=== PATIENT | female | born 2000 | race Two or more races ===

== ENCOUNTER 2021-03-29 21:42 | Emergency (ER) | payer OTHER ==
[~2021-03-29] VITALS: Ht 167.6 cm; Wt 74.8 kg
[2021-03-29] MEDS ORDERED: diphenhydrAMINE HCL 50 MG/ML VIAL ONE (21:55)
[2021-03-29] MEDS ORDERED: HALOPERIDOL LACTATE INJ 5 MG/ML VIAL ONE (21:55)
[2021-03-29] MEDS ORDERED: QUETIAPINE FUMARATE 25 MG TABLET ONE (21:56)
[2021-03-29] MEDS ORDERED: LORAZEPAM INJ 2 MG/ML VIAL ONE (21:56)
[2021-03-29] MEDS ORDERED: HALOPERIDOL LACTATE INJ 5 MG/ML VIAL IM ONE (22:00)
[2021-03-29] MEDS ORDERED: LORAZEPAM INJ 2 MG/ML VIAL IM ONE (22:00)
[2021-03-29] MEDS ORDERED: diphenhydrAMINE HCL 50 MG/ML VIAL IM ONE (22:00)
[2021-03-29 23:25] LABS: BASOPHILS # (AUTO) 0.1 K/uL (0.0-0.2); EOSINOPHILS % (AUTO) 1.1 % (0.0-6.0); HEMATOCRIT 32 % (33-45); HEMOGLOBIN 10.2 g/dL (11.5-14.8); LYMPHOCYTES # (AUTO) 2.2 K/uL (0.8-4.8); LYMPHOCYTES % (AUTO) 42.3 % (20.0-44.0); MEAN CORPUSCULAR HGB CONC 32 g/dl (31.0-36.0); MEAN CORPUSCULAR VOLUME 82 fL (82-100); MONOCYTES # (AUTO) 0.4 K/uL (0.1-1.30); MONOCYTES % (AUTO) 7.9 % (2.0-12.0); NEUTROPHILS # (AUTO) 2.5 K/uL (1.8-8.9); NEUTROPHILS % (AUTO) 47.7 % (43.0-81.0); PLATELET COUNT (AUTO) 299 K/uL (150-450); WHITE BLOOD COUNT (AUTO) 5.3 K/uL (4.3-11.0)
[2021-03-29 23:41] LABS: BILIRUBIN,URINE NEGATIVE (NEGATIVE); LEUKOCYTE ESTERASE ,URINE NEGATIVE (NEGATIVE); NITRITE, URINE NEGATIVE (NEGATIVE); PH,URINE 6.5 (5.0-8.0); PROTEIN,URINE NEGATIVE (NEGATIVE); UGLUCOSE NEGATIVE (NEGATIVE); UROBILINOGEN,URINE 0.2 EU/dL (0.2)
[2021-03-29 23:43] LABS: COLOR,URINE LIGHT YELLOW (YELLOW)
[2021-03-29 23:59] LABS: CALCIUM, SERUM 7.7 mg/dL (8.5-10.1); CREATININE 0.7 mg/dL (0.6-1.3); POTASSIUM 3.7 mmol/L (3.5-5.1)
[2021-03-30 00:05] LABS: ALBUMIN 3.2 g/dL (3.4-5.0); BILIRUBIN,DIRECT 0.1 mg/dL (0.0-0.2); BILIRUBIN,TOTAL 0.2 mg/dL (0.2-1.0); TOTAL PROTEIN, SERUM 7.1 g/dL (6.4-8.2)
[2021-03-30 10:50] VITALS: BP 107/63
== END 2021-03-30 10:51 | disposition home or self-care (01) ==
LOC: EDBD 21:46 → ER 21:46
DX: F10.129 Alcohol abuse with intoxication, unspecified (principal); Y90.8 Blood alcohol level of 240 mg/100 ml or more; Z20.822 Contact with and (suspected) exposure to COVID-19; R45.1 Restlessness and agitation
CPT/HCPCS: 36415; 80048; 80076; 80143; 80307; 80320; 81003; 84703; 85025; 87426; 96372 ×2; 99285; C9803; J1200; J1630; J2060; G0480